=== PATIENT | male | born 1980 | race Caucasian/White ===

== ENCOUNTER 2017-11-08 08:10 | Day surgery (SDC) | payer BC ==
[2017-11-08] MEDS ORDERED: Lactated Ringers 1,000 ML IV SCH (08:15)
[2017-11-08] MEDS ORDERED: Lidocaine 1% with EPINEPHrine 1:100,000 50 ML MDV ONE (09:22)
[2017-11-08] MEDS ORDERED: Bupivacaine 0.5% 50 ML MDV ONE (09:22)
[2017-11-08] MEDS ORDERED: fentaNYL 100 MCG/2 ML SDV ONE (10:03)
[2017-11-08] MEDS ORDERED: Propofol 200 MG/20 ML SDV ONE ×2 (10:03→10:34)
[2017-11-08] MEDS ORDERED: Midazolam 1 MG/ML 2 ML SDV ONE ×2 (10:03→10:21)
[2017-11-08] MEDS ORDERED: Acetaminophen/HYDROcodone 325-5 MG Tab PO PRN (11:35)
--- NOTE | 2017-11-09 07:38 | OR ---
DATE OF PROCEDURE: 11/08/2017 PREOPERATIVE DIAGNOSIS: 3.5 cm abdominal wall mass, right side. POSTOPERATIVE DIAGNOSIS: 3.5 cm abdominal wall mass, right side. PROCEDURE: Excision of 3.5 cm abdominal wall mass, right side, through a 7-cm long elliptical incision. SURGEON: Kevin Menon MD ANESTHESIA: IV anesthesia with monitored anesthesia. INDICATION: This 37-year-old white male has a lesion on the right side of his abdomen. He said it began something like a pimple 4 years ago and it has slowly gotten worse. He was referred to have it excised. It measures 3.5 cm in the longest dimension x about 3 cm in the transverse dimension. I counseled him for excision of this, including risks and alternatives, and he gave his informed consent to proceed. DESCRIPTION OF PROCEDURE: After adequate IV anesthesia was obtained, the patient's abdomen was prepped and draped in the usual sterile fashion. Lidocaine 1% with epinephrine in a 50:50 mix with 0.5% Marcaine was infiltrated about the lesion. The lesion was then excised using an elliptical incision with a 7-cm long ellipse, went all the way to the fascia using Bovie cautery and excised it. The medial aspect was tagged with a stitch to jennifer it. The incision was irrigated and suctioned dry. The deep tissues were closed with interrupted 3-0 and 2-0 Vicryl suture, 4-0 Vicryl using a subcuticular stitch was placed to approximate the skin. Dermabond was applied. He tolerated the procedure well and was brought to the recovery room in a good condition. Kevin Menon MD /[id number] MTDD
== END 2017-11-08 12:12 | disposition home or self-care (01) ==
LOC: JP.SDS 08:10
PROVIDERS: ATTEND Surgery
DX: L90.5 Scar conditions and fibrosis of skin (principal); I10 Essential (primary) hypertension; E11.9 Type 2 diabetes mellitus without complications; K21.9 Gastro-esophageal reflux disease without esophagitis; E78.5 Hyperlipidemia, unspecified
CPT/HCPCS: 22903; 88305; A9270; J2250; J2704; J3010; J7120

== ENCOUNTER 2021-05-19 14:41 | Emergency (ER) | payer BC ==
--- NOTE | 2021-05-19 15:21 | EDM.PDOC ---
ED HPI GENERAL MEDICAL PROBLEM - General Chief Complaint: Chest Pain Stated Complaint: CHEST PAIN Time Seen by Provider: 05/19/21 15:21 Source of Information: Reports: Patient, RN Notes Reviewed History Limitations: Reports: No Limitations - History of Present Illness INITIAL COMMENTS - FREE TEXT/NARRATIVE: Carlos Alberto presents today with complaints of chest pressure for the past 24 hours. He states he was walking a trail in [facility] with his yesterday, felt sudden onset of chest pressure, had to stop walking, took a rest for a few minutes then resumed trail. He states the chest pressure went away but then came back and will not go away. He denies radiation of the chest pressure to anywhere else on his body. He denies fever, chills, nausea, vomiting, change in bowel/bladder or other concerns. He states he has not taken cholesterol, asa or diabetes medicine for about 5 years. Primary provider Clayton Howe NP. Patient reports use of marijuana. He denies use of tobacco, alcohol or any other illicit drugs. Significant family history of CAD, CHF, ME. Bilateral Chest Pain Score (Numeric/FACES): 3 - Related Data Allergies Allergy/AdvReac Type Severity Reaction Status Date / Time No Known Allergies Allergy Verified 05/19/21 14:54 Home Meds: Home Meds Lisinopril 20 mg PO DAILY 11/04/17 [History] Past Medical History HEENT History: Reports: Impaired Vision Cardiovascular History: Reports: Heart Murmur, Hypertension Respiratory History: Reports: Sleep Apnea Psychiatric History: Reports: Anxiety Endocrine/Metabolic History: Reports: Diabetes, Type II, Obesity/BMI 30+ - Infectious Disease History Infectious Disease History: Reports: Chicken Pox - Past Surgical History Head Surgeries/Procedures: Reports: None HEENT Surgical History: Reports: None Cardiovascular Surgical History: Reports: None Respiratory Surgical History: Reports: None Endocrine Surgical History: Reports: None Dermatological Surgical History: Reports: None Social & Family History - Family History Family Medical History: No Pertinent Family History - Tobacco Use Tobacco Use Status *Q: Never Tobacco User - Caffeine Use Caffeine Use: Reports: Coffee - Recreational Drug Use Recreational Drug Use: No ED ROS GENERAL - Review of Systems Review Of Systems: See Below Constitutional: Reports: No Symptoms HEENT: Reports: No Symptoms Respiratory: Reports: No Symptoms Cardiovascular: Reports: Chest Pain (chest pressure like something is sitting on chest since 1300 yesterday. ), Blood Pressure Problem. Denies: Claudication, Dyspnea on Exertion, Edema, Lightheadedness, Orthopnea, Palpitations, PND, Syncope Endocrine: Reports: Fatigue (for the past 24 hours) GI/Abdominal: Reports: No Symptoms : Reports: No Symptoms Musculoskeletal: Reports: No Symptoms Skin: Reports: No Symptoms Neurological: Reports: No Symptoms Psychiatric: Reports: No Symptoms Hematologic/Lymphatic: Reports: No Symptoms Immunologic: Reports: No Symptoms ED EXAM, GENERAL - Physical Exam Exam: See Below Exam Limited By: No Limitations General Appearance: Alert, WD/WN, No Apparent Distress Eye Exam: Bilateral Eye: Normal Inspection, PERRL Ears: Normal External Exam, Normal Canal, Hearing Grossly Normal, Normal TMs Throat/Mouth: Normal Inspection, Normal Lips, Normal Teeth, Normal Gums, Normal Oropharynx, Normal Voice, No Airway Compromise Head: Atraumatic, Normocephalic Neck: Normal Inspection, Supple, Non-Tender, Full Range of Motion. No: Lymphadenopathy (R), Lymphadenopathy (L) Respiratory/Chest: No Respiratory Distress, Lungs Clear, Normal Breath Sounds, No Accessory Muscle Use, Chest Non-Tender. No: Decreased Breath Sounds, Crackles, Rales, Rhonchi, Wheezing, Stridor, Retractions, Splinting Cardiovascular: Normal Peripheral Pulses, Regular Rate, Rhythm, No Edema, No Gallop, No Murmur, No Rub Peripheral Pulses: 4+: Radial (L), Radial (R), Dorsalis Pedis (L), Dorsalis Pedis (R) GI/Abdominal: Normal Bowel Sounds, Soft, Non-Tender, No Organomegaly, No Distention, No Abnormal Bruit, No Mass, Pelvis Stable. No: Guarding, Rigid, Rebound, Tender (Male) Exam: Deferred Rectal (Males) Exam: Deferred Back Exam: Normal Inspection, Full Range of Motion. No: CVA Tenderness (R), CVA Tenderness (L) Extremities: Normal Inspection, Normal Range of Motion, Non-Tender, No Pedal Edema, Normal Capillary Refill Neurological: Alert, Oriented, CN II-XII Intact, Normal Cognition, Normal Reflexes, No Motor/Sensory Deficits Psychiatric: Normal Affect, Normal Mood Skin Exam: Warm, Dry, Intact, Normal Color, No Rash Lymphatic: No Adenopathy #1 Interpretation EKG Date: 05/19/21 Time: 15:24 Rhythm: NSR Rate (Beats/Min): 75 Climax: Normal P-Wave: Present (Flipped T waves in lead III) QRS: Normal ST-T: Normal QT: Normal MN/PQ Interval: 161 Comparison: NA - No Prior EKG #2 Interpretation EKG Date: 05/19/21 Time: 19:58 Rhythm: NSR Climax: Normal P-Wave: Present QRS: Normal ST-T: Normal QT: Normal Comparison: No Change (flipped T waves to lead III) Course - Vital Signs Last Recorded V/S: Last Vital Signs Temp 36.2 C 05/19/21 14:52 Pulse 76 05/19/21 22:15 Resp 18 05/19/21 22:15 BP 153/86 H 05/19/21 22:15 Pulse Ox 96 05/19/21 22:15 - Orders/Labs/Meds Orders: Active Orders 24 hr Category Date Time Status Telemetry Monitoring [Cardiac Monitoring] [RC] .As Care 05/19/21 19:03 Active Directed Chest 1V Frontal [CR] Stat Exams 05/19/21 15:39 Taken Heparin Sodium/D5W [Heparin 25,000 Units in D5W 500 ML] Med 05/19/21 18:45 Active 25,000 units in 500 ml IV TITRATE Sodium Chloride 0.9% [Normal Saline] 1,000 ml Med 05/19/21 16:30 Active IV ASDIRECTED Sodium Chloride 0.9% [Saline Flush] Med 05/19/21 15:40 Active 10 ml FLUSH ASDIRECTED PRN Saline Lock Insert [OM.PC] Routine Oth 05/19/21 15:40 Ordered EKG 12 Lead [EK] Routine Ther 05/19/21 15:21 Ordered EKG 12 Lead [EK] Routine Ther 05/19/21 19:04 Ordered Medication Orders Sodium Chloride (Normal Saline) 1,000 mls @ 50 mls/hr IV ASDIRECTED FABIAN Last Admin: 05/19/21 16:41 Dose: 50 mls/hr Documented by: [id number] Heparin Sodium/Dextrose (Heparin 25,000 Units In D5w 500 Ml) 25,000 units in 500 mls @ 29.538 mls/hr IV TITRATE FABIAN; Protocol Last Admin: 05/19/21 19:39 Dose: 8.13 units/kg/hr, 20 mls/hr Documented by: [email or web address] Cosigned by: ARIANA Sodium Chloride (Sodium Chloride 0.9% 10 Ml Syringe) 10 ml FLUSH ASDIRECTED PRN PRN Reason: Keep Vein Open Last Admin: 05/19/21 16:39 Dose: 10 ml Documented by: [id number] Labs: Laboratory Tests 05/19/21 05/19/21 05/19/21 Range/Units 15:52 15:52 16:34 WBC 10.9 (4.5-11.0) K/uL RBC 4.70 (4.30-5.90) M/uL Hgb 14.4 (12.0-15.0) g/dL Hct 41.1 (40.0-54.0) % MCV 87 (80-98) fL MCH 31 (27-31) pg MCHC 35 (32-36) % Plt Count 227 (150-400) K/uL Neut % (Auto) 64.3 (36-66) % Lymph % (Auto) 28.1 (24-44) % [place] % (Auto) 6.4 H (2-6) % Eos % (Auto) 0.7 L (2-4) % Baso % (Auto) 0.5 (0-1) % Sodium 135 L (140-148) mmol/L Potassium 3.7 (3.6-5.2) mmol/L Chloride 101 (100-108) mmol/L Carbon Dioxide 26 (21-32) mmol/L Anion Gap 11.7 (5.0-14.0) mmol/L BUN 12 (7-18) mg/dL Creatinine 1.0 (0.8-1.3) mg/dL Est Cr Clr Drug Dosing 105.62 mL/min Estimated GFR (MDRD) > 60 (>60) Glucose 163 H (74-106) mg/dL Calcium 8.7 (8.5-10.1) mg/dL Total Bilirubin 0.3 (0.2-1.0) mg/dL AST 14 L (15-37) U/L ALT 24 (12-78) U/L Alkaline Phosphatase 59 (46-116) U/L Troponin I 0.224 H* (0.000-0.056) ng/mL NT-Pro-B Natriuret Pep 153 H (5-125) pg/mL Total Protein 6.4 (6.4-8.2) g/dL Albumin 3.5 (3.4-5.0) g/dL Globulin 2.9 (2.3-3.5) g/dL Albumin/Globulin Ratio 1.2 (1.2-2.2) TSH, Ultra Sensitive 4.310 H (0.358-3.740) uIU/mL Urine Color (YELLOW) Urine Appearance (CLEAR) Urine pH (5.0-8.0) Ur Specific [place] (1.008-1.030) Urine Protein (NEGATIVE) mg/dL Urine Glucose (UA) (NEGATIVE) mg/dL Urine Ketones (NEGATIVE) mg/dL Urine Occult Blood (NEGATIVE) Urine Nitrite (NEGATIVE) Urine Bilirubin (NEGATIVE) Urine Urobilinogen (0.2-1.0) EU/dL Ur Leukocyte Esterase (NEGATIVE) Urine RBC (0-5) Urine WBC (0-5) Ur Epithelial Cells Amorphous Sediment Urine Bacteria Urine Mucus SARS CoV-2 RNA Rapid NUBIA 05/19/21 05/19/21 05/19/21 Range/Units 16:36 17:20 17:52 WBC (4.5-11.0) K/uL RBC (4.30-5.90) M/uL Hgb (12.0-15.0) g/dL Hct (40.0-54.0) % MCV (80-98) fL MCH (27-31) pg MCHC (32-36) % Plt Count (150-400) K/uL Neut % (Auto) (36-66) % Lymph % (Auto) (24-44) % [place] % (Auto) (2-6) % Eos % (Auto) (2-4) % Baso % (Auto) (0-1) % Sodium (140-148) mmol/L Potassium (3.6-5.2) mmol/L Chloride (100-108) mmol/L Carbon Dioxide (21-32) mmol/L Anion Gap (5.0-14.0) mmol/L BUN (7-18) mg/dL Creatinine (0.8-1.3) mg/dL Est Cr Clr Drug Dosing mL/min Estimated GFR (MDRD) (>60) Glucose (74-106) mg/dL Calcium (8.5-10.1) mg/dL Total Bilirubin (0.2-1.0) mg/dL AST (15-37) U/L ALT (12-78) U/L Alkaline Phosphatase (46-116) U/L Troponin I 0.814 H* (0.000-0.056) ng/mL NT-Pro-B Natriuret Pep (5-125) pg/mL Total Protein (6.4-8.2) g/dL Albumin (3.4-5.0) g/dL Globulin (2.3-3.5) g/dL Albumin/Globulin Ratio (1.2-2.2) TSH, Ultra Sensitive (0.358-3.740) uIU/mL Urine Color Yellow (YELLOW) Urine Appearance Clear (CLEAR) Urine pH 6.0 (5.0-8.0) Ur Specific [place] > 1.030 (1.008-1.030) Urine Protein >=300 H (NEGATIVE) mg/dL Urine Glucose (UA) 100 H (NEGATIVE) mg/dL Urine Ketones Negative (NEGATIVE) mg/dL Urine Occult Blood Negative (NEGATIVE) Urine Nitrite Negative (NEGATIVE) Urine Bilirubin Negative (NEGATIVE) Urine Urobilinogen 0.2 (0.2-1.0) EU/dL Ur Leukocyte Esterase Negative (NEGATIVE) Urine RBC 0-5 (0-5) Urine WBC Not seen (0-5) Ur Epithelial Cells Not seen Amorphous Sediment Not seen Urine Bacteria Rare Urine Mucus Not seen SARS CoV-2 RNA Rapid NUBIA Negative 05/19/21 Range/Units 21:55 WBC (4.5-11.0) K/uL RBC (4.30-5.90) M/uL Hgb (12.0-15.0) g/dL Hct (40.0-54.0) % MCV (80-98) fL MCH (27-31) pg MCHC (32-36) % Plt Count (150-400) K/uL Neut % (Auto) (36-66) % Lymph % (Auto) (24-44) % [place] % (Auto) (2-6) % Eos % (Auto) (2-4) % Baso % (Auto) (0-1) % Sodium (140-148) mmol/L Potassium (3.6-5.2) mmol/L Chloride (100-108) mmol/L Carbon Dioxide (21-32) mmol/L Anion Gap (5.0-14.0) mmol/L BUN (7-18) mg/dL Creatinine (0.8-1.3) mg/dL Est Cr Clr Drug Dosing mL/min Estimated GFR (MDRD) (>60) Glucose (74-106) mg/dL Calcium (8.5-10.1) mg/dL Total Bilirubin (0.2-1.0) mg/dL AST (15-37) U/L ALT (12-78) U/L Alkaline Phosphatase (46-116) U/L Troponin I 1.523 H* (0.000-0.056) ng/mL NT-Pro-B Natriuret Pep (5-125) pg/mL Total Protein (6.4-8.2) g/dL Albumin (3.4-5.0) g/dL Globulin (2.3-3.5) g/dL Albumin/Globulin Ratio (1.2-2.2) TSH, Ultra Sensitive (0.358-3.740) uIU/mL Urine Color (YELLOW) Urine Appearance (CLEAR) Urine pH (5.0-8.0) Ur Specific [place] (1.008-1.030) Urine Protein (NEGATIVE) mg/dL Urine Glucose (UA) (NEGATIVE) mg/dL Urine Ketones (NEGATIVE) mg/dL Urine Occult Blood (NEGATIVE) Urine Nitrite (NEGATIVE) Urine Bilirubin (NEGATIVE) Urine Urobilinogen (0.2-1.0) EU/dL Ur Leukocyte Esterase (NEGATIVE) Urine RBC (0-5) Urine WBC (0-5) Ur Epithelial Cells Amorphous Sediment Urine Bacteria Urine Mucus SARS CoV-2 RNA Rapid NUBIA Initial troponin elevated. Attempts at transfer for NSTEMI unsuccessful. Second troponin elevated. [facility] contacted, dry house wheeler advises they have a bed available, hospitalist/cardiology contacted. [place] [facility] contacted for transfer. Meds: Medications Generic Name Dose Route Start Last Admin Trade Name Freq PRN Reason Stop Dose Admin Sodium Chloride 1,000 mls @ 50 mls/hr 05/19/21 16:30 05/19/21 16:41 Normal Saline IV 50 mls/hr ASDIRECTED FABIAN Administration Heparin Sodium/Dextrose 25,000 units in 500 mls @ 29.538 mls/hr 05/19/21 18:45 05/19/21 19:39 Heparin 25,000 Units In D5w 500 Ml IV 8.13 units/kg/hr TITRATE FABIAN 20 mls/hr Administration Protocol 12 UNITS/KG/HR Sodium Chloride 10 ml 05/19/21 15:40 05/19/21 16:39 Sodium Chloride 0.9% 10 Ml Syringe FLUSH 10 ml ASDIRECTED PRN Administration Keep Vein Open Discontinued Medications Generic Name Dose Route Start Last Admin Trade Name Tito PRN Reason Stop Dose Admin Aspirin 324 mg 05/19/21 15:38 05/19/21 15:43 Aspirin 81 Mg Tab.Chew PO 05/19/21 15:39 324 mg ONETIME ONE Administration Clopidogrel Bisulfate 600 mg 05/19/21 20:48 05/19/21 20:57 Clopidogrel 75 Mg Tab PO 05/19/21 20:49 600 mg ONETIME ONE Administration Heparin Sodium (Porcine) 4,000 units 05/19/21 18:43 05/19/21 19:36 Heparin Sodium 5,000 Units/Ml Vial IVPUSH 05/19/21 18:44 4,000 units ONETIME ONE Administration Metoprolol Tartrate 5 mg/ 55 mls @ 100 mls/hr 05/19/21 17:59 05/19/21 18:03 Sodium Chloride IV 05/19/21 18:31 Not Given ONETIME ONE Lorazepam 0.5 mg 05/19/21 20:03 05/19/21 20:56 Lorazepam 2 Mg/Ml Sdv IVPUSH 05/19/21 20:04 0.5 mg ONETIME ONE Administration Lorazepam 0.5 mg 05/19/21 22:12 Lorazepam 2 Mg/Ml Sdv IVPUSH 05/19/21 22:13 ONETIME ONE Metoprolol Tartrate 5 mg 05/19/21 16:41 05/19/21 16:56 Metoprolol Tartrate 5 Mg/5 Ml Sdv IVPUSH 05/19/21 16:42 5 mg ONETIME ONE Administration Metoprolol Tartrate 5 mg 05/19/21 18:02 05/19/21 18:08 Metoprolol Tartrate 5 Mg/5 Ml Sdv IVPUSH 05/19/21 18:03 5 mg ONETIME ONE Administration Morphine Sulfate 2 mg 05/19/21 16:42 Morphine 2 Mg/Ml Syringe IVPUSH 05/19/21 16:43 ONETIME ONE Nitroglycerin 0.4 mg 05/19/21 16:28 05/19/21 16:33 Nitroglycerin 0.4 Mg Tab.Sl SL 05/19/21 16:29 0.4 mg ONETIME ONE Administration Nitroglycerin 0.4 mg 05/19/21 16:42 Nitroglycerin 0.4 Mg Tab.Sl SL 05/19/21 16:43 ONETIME ONE 1645 patient pain free after nitro SL x 1. - Radiology Interpretation Free Text/Narrative:: Chest x-ray reviewed, noted cardiomegaly. - Re-Assessments/Exams Free Text/Narrative Re-Assessment/Exam: 05/19/21 16:22 Patient and his notified of patient lab work. NSTEMI Patient in need of transfer and higher level of care. Contacted: [facility], [place] No beds available, unable to transfer [facility], [place] No beds available, unable to transfer [place], [place] No beds available, unable to transfer [place], [place] No beds available, unable to transfer [place], [place] No beds available, unable to transfer [place], [place] No beds available, unable to transfer [place], [place] No beds available, unable to transfer [facility] No beds available, unable to transfer [facility] No beds available, unable to transfer [place], [place] No beds available, unable to transfer [facility] No beds available, unable to transfer [facility] No beds available, unable to transfer [facility] No beds available, unable to transfer [place], [place] No beds available, unable to transfer Critical digital asset coordinator - advised that their requests for critical care beds was capped at this time and to telephone [facility] for assistance. Patient advised, we will continue to monitor patient in emergency room. Dr. Logan notified, he is in agreement with plan. Patient and his in agreement with plan. 05[facility]19[facility]21 [facility] bed open. Dr. Cole can be contacted for report. Dr. Cole contacted, I will telephone her back at [phone] per her request. 05/19/21 19:36 We will fax Emergency room records for possible transfer of patient. 05/19/21 20:08 Dr. Cole contacted, she is in process of reviewing patient information. She will telephone back. Patient and his notified of progress in transfer, they are in agreement with plan. [facility] cancelled due to need of different transfer arrangements. Dr. Dutta updated on plan, he agrees with plan. 05/19/21 20:[address] Garrido [facility] Cardiology service. She accepts patient for transfer. She advised administration of plavix, repeat troponin, continue to monitor. Transport via ground. Currently on bed hold. Patient and his notified, they are in agreement with plan. We will administer plavix 600mg PO x one dose, contiue heparin, nitro if needed, morphine for pain if needed. Patient currently denies chest pressure. He does complain of anxiety - we ill administer lorazepam 0.5mg IV. 05/19/21 21:43 [facility] telephoned back, hospital admission states we can send the patient now. Sonya RITCHIE notified. Patient and his notified. EMS notified. 05/19/21 22:11 Patient care assumed by Dr. Dutta in [facility] ER, patient and notified. Pending EMS transfer, vital signs stable. Patient denies chest pain or pressure at this time. I will order additional lorazepam 0.5mg IV for anxiety if needed PRN. 05/19/21 22:28 [facility] EMS service telephoned emergency room, they state they are working on arranging a transfer with their staff. 05/19/21 22:50 3rd Troponin elevated at 1.523 No transport arranged per [facility] EMS at this time with >120 minutes since notification of need for ground transportation. [facility] advised, we will fly patient instead of ground due to ongoing elevation of troponin. [facility] contacted, fixed wing transport arranged. Departure - Departure Time of Disposition: 20:45 Disposition: DC/Tfer to Acute Hospital 02 Reason for Transfer *Q: Other (need of cardiology services angiogram, possible stent placement or other intervention, increased troponin, angina, cardiomegaly, hypertension, NSTEMI) Condition: Fair Clinical Impression: NSTEMI (non-ST elevation myocardial infarction), Elevated troponin, Hypertension, Uncontrolled diabetes mellitus, Cardiomegaly, Hypokalemia, Angina at rest Referrals: PCP,None [Primary Care Provider] - Forms: ED Department Discharge Sepsis Event Note (ED) - Evaluation Sepsis Screening Result: No Definite Risk - Focused Exam Vital Signs: Vital Signs Temp Pulse Pulse Resp BP BP Pulse Ox 05/19/21 22:15 76 18 153/86 H 96 05/19/21 21:15 68 20 145/79 H 97 05/19/21 20:15 78 11 L 158/88 H 96 05/19/21 19:15 74 19 147/78 H 96 05/19/21 18:30 69 11 L 143/85 H 96 05/19/21 18:14 67 12 144/94 H 93 L 05/19/21 18:08 69 158/90 H 05/19/21 17:52 73 14 158/90 H 98 05/19/21 17:33 69 16 168/99 H 97 05/19/21 17:16 67 157/102 H 96 05/19/21 17:03 69 164/97 H 05/19/21 17:02 69 14 180/99 H 98 05/19/21 16:57 73 14 168/98 H 96 05/19/21 16:56 77 168/98 H 05/19/21 16:45 72 16 160/97 H 96 05/19/21 16:36 79 168/105 H 05/19/21 16:33 172/99 H 05/19/21 16:28 80 15 168/105 H 96 05/19/21 15:47 78 15 147/78 H 96 05/19/21 15:45 77 172/99 H 05/19/21 14:52 36.2 C 82 16 166/97 H 97 - My Orders Last 24 Hours: My Active Orders 05/19/21 15:21 EKG 12 Lead [EK] Routine 05/19/21 15:39 Chest 1V Frontal [CR] Stat 05/19/21 15:40 Sodium Chloride 0.9% [Saline Flush] 10 ml FLUSH ASDIRECTED PRN Saline Lock Insert [OM.PC] Routine 05/19/21 16:30 Sodium Chloride 0.9% [Normal Saline] 1,000 ml IV ASDIRECTED 05/19/21 18:45 Heparin Sodium/D5W [Heparin 25,000 Units in D5W 500 ML] 25,000 units in 500 ml IV TITRATE 05/19/21 19:03 Telemetry Monitoring [Cardiac Monitoring] [RC] .As Directed 05/19/21 19:04 EKG 12 Lead [EK] Routine - Assessment/Plan Last 24 Hours: My Active Orders 05/19/21 15:21 EKG 12 Lead [EK] Routine 05/19/21 15:39 Chest 1V Frontal [CR] Stat 05/19/21 15:40 Sodium Chloride 0.9% [Saline Flush] 10 ml FLUSH ASDIRECTED PRN Saline Lock Insert [OM.PC] Routine 05/19/21 16:30 Sodium Chloride 0.9% [Normal Saline] 1,000 ml IV ASDIRECTED 05/19/21 18:45 Heparin Sodium/D5W [Heparin 25,000 Units in D5W 500 ML] 25,000 units in 500 ml IV TITRATE 05/19/21 19:03 Telemetry Monitoring [Cardiac Monitoring] [RC] .As Directed 05/19/21 19:04 EKG 12 Lead [EK] Routine Assessment:: NSTEMI (non-ST elevation myocardial infarction), Elevated troponin, Hypertension, Uncontrolled diabetes mellitus, Cardiomegaly, Hypokalemia, angina at rest Patient transfer to [facility] for ongoing care, cardiology services, possible angio, further testing, stent placement/surgical intervention to be determined. Plan: Patient transfer to [facility], acceptance per Dr. Garrido, cardiology. Transport via EMS ground. IV x 2, heparin drip, NS at TKO, Nitro PRN - currently chest pain/pressure free. ASA 324mg PO, plavix 600mg PO, heparin IV bolus, Metoprolol 5mg IV x 2 doses administered.
[2021-05-19] MEDS ORDERED: Aspirin 81 MG Tab.Chew PO ONE (15:38)
[2021-05-19] MEDS ORDERED: Sodium Chloride 0.9% 10 ML Syringe FLUSH PRN (15:40)
[2021-05-19] MEDS ORDERED: Nitroglycerin 0.4 MG Tab.SL SL ONE ×2 (16:28→16:42)
[2021-05-19] MEDS ORDERED: Sodium Chloride 0.9% 1,000 ML IV SCH (16:30)
[2021-05-19] MEDS ORDERED: Metoprolol Tartrate 5 MG/5 ML SDV IVPUSH ONE ×2 (16:41→18:02)
[2021-05-19] MEDS ORDERED: Morphine 2 MG/ML SYRINGE IVPUSH ONE (16:42)
[2021-05-19] MEDS ORDERED: Metoprolol Tartrate 5 MG in Sodium Chloride 0.9% 50 ML IV ONE (17:59)
[2021-05-19] MEDS ORDERED: Heparin Sodium 5,000 Units/ML Vial IVPUSH ONE (18:43)
[2021-05-19] MEDS ORDERED: Heparin Sodium/D5W 25,000 UNITS/500 ML BAG IV SCH (18:45)
[2021-05-19] MEDS ORDERED: LORazepam 2 MG/ML SDV IVPUSH ONE ×2 (20:03→22:12)
[2021-05-19] MEDS ORDERED: Clopidogrel 75 MG Tab PO ONE (20:48)
--- NOTE | 2021-05-20 08:46 | CR ---
CHEST: Portable 05/19/2021 at 4:17 PM CLINICAL HISTORY:Chest pressure COMPARISON:None FINDINGS: The heart size is enlarged. The pulmonary vascularity and hilar structures are normal. No infiltrate effusion or pneumothorax is seen. IMPRESSION: No acute cardiopulmonary process. Cardiomegaly
== END 2021-05-19 23:31 ==
LOC: JP.ED 14:41
DX: I21.4 Non-ST elevation (NSTEMI) myocardial infarction (principal); R79.89 Other specified abnormal findings of blood chemistry; E87.6 Hypokalemia; I11.9 Hypertensive heart disease without heart failure; I20.9 Angina pectoris, unspecified; E11.9 Type 2 diabetes mellitus without complications; E66.9 Obesity, unspecified; Z68.36 Body mass index [BMI] 36.0-36.9, adult; Z79.899 Other long term (current) drug therapy; Z20.822 Contact with and (suspected) exposure to COVID-19
CPT/HCPCS: 36415; 71045; 80053; 81001; 83880; 84443; 84484; 85025; 87635; 93005; 96365; 96366; 96375; 96376; 99285; A9270; J1644; J2060; J3490; J7030; U0002